=== PATIENT | male | born 1970 | race Caucasian/White ===

== ENCOUNTER 2024-09-07 13:33 | Emergency (ER) | payer OTHER ==
[~2024-09-07] VITALS: Ht 185.4 cm; Wt 105.0 kg
[2024-09-07 13:37] VITALS: O2SAT 100
[2024-09-07] MEDS ORDERED: MORPHINE SULFATE 4 MG/ML INJ (FOR IV/IM USE) IV ONE (14:00)
[2024-09-07] MEDS ORDERED: KETOROLAC 30MG/ML VIAL IV ONE (14:00)
[2024-09-07 14:44] LABS: HEMATOCRIT. 37.6 % (42.0-52.0); HEMOGLOBIN. 12.8 g/dL (14.0-18.0); MEAN CORPUSCULAR HEMOGLOBIN 30.1 pg (28.0-32.0); MEAN CORPUSCULAR HGB CONC 33.9 g/dL (31.0-37.0); MEAN CORPUSCULAR VOLUME 88.8 fL (80.0-94.0); MEAN PLATELET VOLUME 8.3 fl (7.4-10.4); PLATELET 342 x1000/uL (130-400); RED BLOOD CELL COUNT 4.24 mill/uL (4.7-6.1); WHITE BLOOD COUNT 7.2 x1000/uL (4.5-11.0)
[2024-09-07 14:54] LABS: CHLORIDE 104 mEq/L (98-107); DIFFERENTIAL COMMENT 1; INR 1.1; POTASSIUM 4.3 mEq/L (3.5-5.1); PROTHROMBIN TIME 12.4 sec (9.6-11.0); SODIUM 141 mEq/L (136-145)
[2024-09-07 14:56] LABS: CALCIUM 9.1 mg/dL (8.7-10.4); CARBON DIOXIDE 27 mEq/L (21-32)
[2024-09-07 15:01] LABS: GLUCOSE 171 mg/dL (70-105); UREA NITROGEN BLOOD 14 mg/dL (9-23)
[2024-09-07 15:02] LABS: ALANINE AMINOTRANSFERASE 15 IU/L (10-49); ALBUMIN 4.5 g/dL (3.2-4.8)
[2024-09-07 15:03] LABS: ASPARTATE AMINOTRANSFERASE 15 IU/L (<34); BILIRUBIN TOTAL 0.3 mg/dL (0.1-1.0); PROTEIN TOTAL 6.7 g/dL (6.0-8.3)
[2024-09-07 15:11] LABS: BILIRUBIN DIRECT < 0.1 mg/dL (<=3.0)
[2024-09-07 15:24] LABS: PLATELET ESTIMATE NORMAL
[2024-09-07] MEDS ORDERED: NAPR-681 MT (16:01)
[2024-09-07] MEDS: KETOROLAC 30MG/ML VIAL IV ONE (16:30)
[2024-09-07] MEDS: MORPHINE SULFATE 4 MG/ML INJ (FOR IV/IM USE) IV ONE (16:30)
[2024-09-07 16:31] VITALS: BP 139/79; PULSE 67; RESP 18; TEMP 36.50292; O2SAT 99
== END 2024-09-07 16:32 | disposition home or self-care (01) ==
LOC: ER 13:44
DX: N20.0 Calculus of kidney (principal)
CPT/HCPCS: 99284; 74176; 80076; 80048; 83690; 85025; 85610; 36415; J1885